=== PATIENT | female | born 1955 | race Caucasian/White ===

== ENCOUNTER 2020-03-15 11:28 | Emergency (ER) | payer BC, OTHER ==
[~2020-03-15] VITALS: Ht 157.5 cm; Wt 61.0 kg
[2020-03-15] MEDS ORDERED: IV NORMAL SALINE 1,000ML 1,000 ML IV ONE (12:30)
--- NOTE | 2020-03-15 12:33 | RAD ---
Axial CT images of the head were obtained without IV contrast. Comparison: None. Indication: Left arm numbness and overall weakness Findings: No mass effect or hemorrhage is seen. The ventricles are not enlarged or effaced. No midline shift is noted. There is no intra or extra axial fluid collection. No bony or soft tissue abnormality is seen. The visualized paranasal sinuses are clear. Impression: 1. No acute intracranial process seen on non- contrast head CT. Exposure: One or more of the following individualized dose reduction techniques were utilized for this examination: 1. Automated exposure control 2. Adjustment of the mA and/or kV according to patient size 3. Use of iterative reconstruction technique Electronically signed by: Lake Michelle MD (03/15/2020 12:30 PM) [id number]
[2020-03-15 12:59] LABS: BASO % 1 % (0-3); EOS # 0.1 x10^3/uL (0.0-0.7); EOS % 1 % (0-3); HEMATOCRIT 39.2 % (36.0-47.0); HEMOGLOBIN 12.9 g/dL (12.0-15.5); LYMPH # 1.5 x10^3/uL (1.0-4.8); LYMPH % 30 % (24-48); MEAN CORPUSCULAR HEMOGLOBIN 32 pg (25-35); MEAN CORPUSCULAR HGB CONC 33 g/dL (31-37); MEAN CORPUSCULAR VOLUME 95 fL (79-100); MONO # 0.4 x10^3/uL (0.0-1.1); MONO % 7 % (0-9); NEUT # 3.1 x10^3uL (1.8-7.7); NEUT % 61 % (31-73); PLATELET COUNT 231 x10^3/uL (140-400); RED BLOOD COUNT 4.11 x10^6/uL (3.50-5.40); RED CELL DISTRIBUTION WIDTH 12.8 % (11.5-14.5); WHITE BLOOD COUNT 5.1 x10^3/uL (4.0-11.0)
[2020-03-15 13:07] LABS: CALCIUM 9.7 mg/dL (8.5-10.1); CREATININE 0.8 mg/dL (0.6-1.0); GFR 72.4; POTASSIUM 4.1 mmol/L (3.5-5.1)
[2020-03-15 13:13] LABS: ALBUMIN 3.9 g/dL (3.4-5.0); ALBUMIN/GLOBULIN RATIO 1.3 (1.0-1.7); TOTAL BILIRUBIN 0.4 mg/dL (0.2-1.0)
--- NOTE | 2020-03-15 13:18 | PHYS DOC ---
Past History Past Medical History: Migraines Past Surgical History: Additional Past Surgical Histo: endometriosis surgery Alcohol Use: Occasionally General Adult EDM: Chief Complaint: HEADACHE HPI: HPI: 64-year-old female presents with left hand tingling and headache. Patient had an episode of a headache while she was at the [facility]. She does have headaches with aura on occasion. She comes in today because in addition to her normal headache, she has had some left hand numbness. She describes it as a numbness feeling in all 5 fingers. Her little finger is the least affected. She has had intermittent issues with this which she wakes up is aborted with both parents but the left hand is now persistent and has been more frequent the last 2 days. She also has some lower leg pain with walking that is also new for her. She denies weakness in her lower extremities. She denies fever or chills. No known COVID-19 exposures. Review of Systems: Review of Systems: Constitutional: Denies fever or chills Eyes: Denies change in visual acuity HENT: Denies nasal congestion or sore throat Respiratory: Denies cough or shortness of breath Cardiovascular: Denies chest pain or edema GI: Denies abdominal pain, nausea, vomiting, bloody stools or diarrhea : Denies dysuria Musculoskeletal: Pain with walking in the bilateral lower extremities Integument: Denies rash Neurologic: Numbness left hand Endocrine: Denies polyuria or polydipsia Lymphatic: Denies swollen glands Psychiatric: Denies depression or anxiety Current Medications: Current Meds: Current Medications Medications (Trade) Dose Ordered Sig/Li Start Time Stop Time Status Last Admin Dose Admin Sodium Chloride 1,000 ml @ 1,000 mls/hr 1X ONCE 03/15/20 12:30 03/15/20 13:29 Allergies: Allergies: Allergies Coded Allergies Type Severity Reaction Last Updated Verified Sulfa (Sulfonamide Antibiotics) Allergy Unknown 03/15/20 Yes Physical Exam: PE: Constitutional: Well developed, well nourished, no acute distress, non-toxic appearance. [] HENT: Normocephalic, atraumatic, bilateral external ears normal, oropharynx moist, no oral exudates, nose normal. [] Eyes: PERRLA, EOMI, conjunctiva normal, no discharge. [] Neck: Normal range of motion, no tenderness, supple, no stridor. [] Cardiovascular: Heart rate regular rhythm, no murmur [] Lungs & Thorax: Bilateral breath sounds clear to auscultation [] Abdomen: Bowel sounds normal, soft, no tenderness, no masses, no pulsatile masses. [] Skin: Warm, dry, no erythema, no rash. [] Back: No tenderness, no CVA tenderness. [] Extremities: No tenderness, no cyanosis, no clubbing, ROM intact, no edema. [] Neurologic: Decreased sensation of left fingers and hand. Alert and oriented X 3, normal motor function, normal sensory function, no focal deficits noted. [] Psychologic: Affect normal, judgement normal, mood normal. [] Current Patient Data: Labs: Laboratory Tests Test 03/15/20 12:40 White Blood Count 5.1 x10^3/uL (4.0-11.0) Red Blood Count 4.11 x10^6/uL (3.50-5.40) Hemoglobin 12.9 g/dL (12.0-15.5) Hematocrit 39.2 % (36.0-47.0) Mean Corpuscular Volume 95 fL (79-100) Mean Corpuscular Hemoglobin 32 pg (25-35) Mean Corpuscular Hemoglobin Concent 33 g/dL (31-37) Red Cell Distribution Width 12.8 % (11.5-14.5) Platelet Count 231 x10^3/uL (140-400) Neutrophils (%) (Auto) 61 % (31-73) Lymphocytes (%) (Auto) 30 % (24-48) Monocytes (%) (Auto) 7 % (0-9) Eosinophils (%) (Auto) 1 % (0-3) Basophils (%) (Auto) 1 % (0-3) Neutrophils # (Auto) 3.1 x10^3uL (1.8-7.7) Lymphocytes # (Auto) 1.5 x10^3/uL (1.0-4.8) Monocytes # (Auto) 0.4 x10^3/uL (0.0-1.1) Eosinophils # (Auto) 0.1 x10^3/uL (0.0-0.7) Basophils # (Auto) 0.0 x10^3/uL (0.0-0.2) Vital Signs: Vital Signs Date Time Temp Pulse Resp B/P (MAP) Pulse Ox O2 Delivery O2 Flow Rate FiO2 03/15/20 11:39 98.1 63 16 167/74 (105) 98 EKG: EKG: [] Radiology/Procedures: Radiology/Procedures: [] Impressions: Axial CT images of the head were obtained without IV contrast. Comparison: None. Indication: Left arm numbness and overall weakness Findings: No mass effect or hemorrhage is seen. The ventricles are not enlarged or effaced. No midline shift is noted. There is no intra or extra axial fluid collection. No bony or soft tissue abnormality is seen. The visualized paranasal sinuses are clear. Impression: 1. No acute intracranial process seen on non- contrast head CT. Exposure: One or more of the following individualized dose reduction techniques were utilized for this examination: 1. Automated exposure control 2. Adjustment of the mA and/or kV according to patient size 3. Use of iterative reconstruction technique Electronically signed by: Francis Gimenez MD (03/15/2020 12:30 PM) [id number] DICTATED AND SIGNED BY: FRANCIS GIMENEZ MD DATE: 03/15/20 1230 CC: ALICE ELLIOTT DO; PCP,NO ~ Heart Score: Risk Factors: Risk Factors: DM, Current or recent (<one month) smoker, HTN, HLP, family history of CAD, obesity. Risk Scores: Score 0 - 3: 2.5% MACE over next 6 weeks - Discharge Home Score 4 - 6: 20.3% MACE over next 6 weeks - Admit for Clinical Observation Score 7 - 10: 72.7% MACE over next 6 weeks - Early Invasive Strategies Course & Med Decision Making: Course & Med Decision Making Pertinent Labs and Imaging studies reviewed. (See chart for details) The patient's labs are unremarkable. In conversation it seems she has some degenerative disc disease at baseline. This could be causing her hand symptoms. Her head CT is negative for acute findings. I will place her on prednisone for a few days to see if it helps. She will follow-up with her doctor and discuss neurology and/or neurosurgery consult. She is stable for discharge at this time. [] Dragon Disclaimer: Dragon Disclaimer: This electronic medical record was generated, in whole or in part, using a voice recognition dictation system. Departure Departure: Impression: Primary Impression: Headache Qualified Codes: R51.9 - Headache, unspecified Additional Impression: Cervical radiculopathy Referrals: PCP,NO (PCP) Patient Instructions: Cervical Radiculopathy, [id number] Scripts Prednisone (PREDNISONE) 10 Mg Tablet 50 MG PO DAILY for cervical radiculopathy for 4 Days, #20 TAB Prov: ALICE ELLIOTT DO 03/15/20 ALICE ELLIOTT DO Mar 15, 2020 13:18
[2020-03-15] MEDS ORDERED: PRED-220 PO (13:38)
[2020-03-15 14:00] VITALS: BP 145/73
== END 2020-03-15 14:08 | disposition home or self-care (01) ==
LOC: ER 11:28
DX: G43.909 Migraine, unspecified, not intractable, without status migrainosus (principal); M54.12 Radiculopathy, cervical region; R20.2 Paresthesia of skin; Z98.890 Other specified postprocedural states
CPT/HCPCS: 36415; 70450; 80053; 85025; 99284